=== PATIENT | male | born 1980 | race Two or more races ===

== ENCOUNTER 2025-04-24 14:54 | Emergency (ER) | payer MEDICAID, OTHER ==
[~2025-04-24] VITALS: Ht 170.2 cm; Wt 74.8 kg
--- NOTE | 2025-04-24 16:45 | ED.PDOC ---
Musculoskeletal HPI Comments This is a 44 year old male presenting to the ED with chief complaint of left hand injury. Patient reports that while working on his car today, he had accidentally hit his left hand with a hammer and then accidentally bumped his left elbow into his car. Patient relays that there is now a lot of swelling to his left hand and 10/10 pain. Patient denies any numbness, weakness, tingling, or further injury. Chief Complaint: Upper Extremity Time Seen by MD: 16:44 Primary Care Provider: STEPHANIA Noland Notes: Nurses Notes, Medications, Allergies Allergies: Coded Allergies: No Known Drug Allergy (Verified Allergy, Unknown, 04/24/25) Information Source: Patient Mode of Arrival: Ambulatory Location: Left Extremity Location: Hand Timing: Hours Prehospital treatment: None Severity: Moderate Able to Move Extremity: Yes Bear Weight: Fully Pain: Moderate Mechanism: Blunt Trauma Circumstances: Accident Onset of Symptoms: After Trauma Symptoms: Swelling, Pain DVT Risk Factors: NONE Last Tetanus: UTD Past Medical History PAST MEDICAL HISTORY: Denies Surgical History: Denies all surgeries Family History Family History: Reviewed,noncontributory to illness Social History Smoker: Non-Smoker Alcohol: Denies ETOH Use Drugs: Denies Drug Use Lives In: Home Constitutional: denies: chills, diaphoresis, fatigue, fever, malaise, sweats, weakness, others EENTM: denies: blurred vision, double vision, ear bleeding, ear discharge, ear drainage, ear pain, ear ringing, eye pain, eye redness, hearing loss, mouth pain, mouth swelling, nasal discharge, nose bleeding, nose congestion, nose pain, photophobia, tearing, throat pain, throat swelling, voice changes, others Respiratory: denies: cough, hemoptysis, orthopnea, SOB at rest, shortness of breath, SOB with excertion, stridor, wheezing, others Cardiovascular: denies: chest pain, dizzy spells, diaphoresis, Dyspnea on exertion, edema, irregular heart beat, left arm pain, lightheadedness, palpitations, PND, syncope, others Gastrointestinal: denies: abdomen distended, abdominal pain, blood streaked bowels, constipated, diarrhea, dysphagia, difficulty swallowing, hematemesis, melena, nausea, poor appetite, poor fluid intake, rectal bleeding, rectal pain, vomiting, others Genitourinary: denies: burning, dysuria, flank pain, frequency, hematuria, incontinence, penile discharge, penile sore, pain, testicle pain, testicle swelling, urgency, others Neurological: denies: dizziness, fainting, headache, left sided numbness, left sided weakness, numbness, paresthesia, pre-existing deficit, right sided numbness, right sided weakness, seizure, speech problems, tingling, tremors, weakness, others Musculoskeletal: reports: others (Left hand swelling and pain, left elbow pain); denies: back pain, gout, joint pain, joint swelling, muscle pain, muscle stiffness, neck pain Integumetry: denies: bruises, change in color, change in hair/nails, dryness, laceration, lesions, lumps, rash, wounds, others Allergic/Immunocompromised: denies: Difficulty Healing, Frequent Infections, Hives, Itching, others Hematologic/Lymphatic: denies: anemia, blood clots, easy bleeding, easy bruising, swollen glands, others Endocrine: denies: excessive hunger, excessive sweating, excessive thirst, excessive urination, flushing, intolerance to cold, intolerance to heat, unexplained weight gain, unexplained weight loss, others Psychiatric: denies: anxiety, bipolar disorder, depression, hopeless, panic disorder, schizophrenia, sleepless, suicidal, others All Other Systems: Reviewed and Negative Physical Exam General Appearance: Mild Distress HEENT: Normal ENT Inspection, Pharynx Normal, TMs Normal Neck: Full Range of Motion, Non-Tender, Normal, Normal Inspection Respiratory: Chest Non-Tender, Lungs Clear, No Accessory Muscle Use, No Respiratory Distress, Normal Breath Sounds Cardiovascular: No Edema, No JVD, No Murmur, No Gallop, Normal Peripheral Pulses, Regular Rate/Rhythm Breast Exam: Deferred Gastrointestinal: No Organomegaly, Non Tender, No Pulsatile Mass, Normal Bowel Sounds, Soft Genitalia: Deferred Pelvic: Deferred Rectal: Deferred Extremities: Decreased range of motion, Inflammation, Normal capillary refill, Swelling, Tender Musculoskeletal : Location: Left Extremity Location: Elbow, Hand Apperance: Swelling, Deformity, Limited ROM, Tenderness: Moderate Neurologic: Alert, working manager II-XII nml as Tested, No Motor Deficits, Normal Affect, Normal Mood, No Sensory Deficits Cerebellar Function: Normal Reflexes: Normal Skin: Dry, Normal Color, Warm Peripheral Pulses: 1+ carotid (R), 1+ carotid (L) Lymphatic: No Adenopathy Was a procedure done? Was a procedure done?: No Differential Diagnosis EXT Differential Diagnosis: Fracture, Sprain, Dislocation, Contusion, Strain X-Ray, Labs, Meds, VS Vital Signs Date Time Temp Pulse Resp B/P (MAP) Pulse Ox O2 Delivery O2 Flow Rate FiO2 04/24/25 15:27 98.2 70 18 173/81 (111) 96 98.2 Time of 1ST Reevaluation: 17:43 Reevaluation 1ST: Unchanged Patient Education/Counseling: Diagnosis, Treatment Family Education/Counseling: No Family Present Departure 1 Departure Time of Disposition: 18:49 Impression: Primary Impression: Contusion of left elbow Qualified Codes: S50.02XA - Contusion of left elbow, initial encounter Additional Impressions: Soft tissue injury of left hand Qualified Codes: S69.92XA - Unspecified injury of left wrist, hand and finger(s), initial encounter Puncture wound of left hand Qualified Codes: S61.432A - Puncture wound without foreign body of left hand, initial encounter Disposition: 01 HOME / SELF CARE / HOMELESS Condition: Fair Additional Instructions: Keep the puncture wound clean and dry Hot soaks to the hand and the elbow Follow up with your PCP e-Prescriptions Hydrocodone-Acetaminophen (Hydrocodone Bitartrate/AC 5-325 mg) 1 Tab Tab 1 TAB PO BID for 5 Days, #10 TAB Prov: MIAN FARR MD 04/24/25 Cefdinir (Cefdinir) 300 Mg Cap 1 CAP PO BID for 7 Days, #14 CAP Prov: MIAN FARR MD 04/24/25 Naproxen (Naproxen) 375 Mg Tab 500 MG PO BID for 10 Days, #20 TAB Prov: MIAN FARR MD 04/24/25 Discharged With: Self Critical Care Note Critical Care Time?: No Stability Stability form required: No Heart Score Heart Score: Heart Score Response (Comments) Value History N/A 0 EKG N/A 0 Age <45 0 Risk Factors No known risk factors 0 Troponin N/A 0 Total 0 I personally scribed for SEVERO JOHNSON MD ([email or web address]) on 04/24/25 at 16:45. Electronically submitted by Dusty Galdamez ([email or web address]). SEVERO JOHNSON MD Apr 24, 2025 16:45 MIAN FARR MD Apr 24, 2025 17:38
--- NOTE | 2025-04-24 17:49 | DVH ---
CLINICAL INDICATION: trauma TECHNIQUE: 3 radiographic views of the left elbow were obtained. Comparison: None FINDINGS/IMPRESSION: 8 mm Olecranon bony spur is noted with fracture of the bony spur of unknown chronicity. Recommend co rrelation with point tenderness. Otherwise, no evidence of acute traumatic fractures or dislocations. The visualized joint space is well maintained. The alignment is anatomical. There is no radiopaque foreign body.
--- NOTE | 2025-04-24 17:50 | DVH ---
CLINICAL INDICATION: trauma TECHNIQUE: 3 radiographic views of the left hand were obtained. Comparison: None FINDINGS/IMPRESSION: There is no evidence of acute fracture or dislocation. The visualized joint space is well maintained. The alignment is anatomical. There is no radiopaque foreign body.
[2025-04-24] MEDS ORDERED: HYDR-4902 PO (18:53)
[2025-04-24] MEDS ORDERED: NAPR-957 PO (18:53)
[2025-04-24] MEDS ORDERED: CEFD300C2 PO (18:53)
[2025-04-24] MEDS: HYDROcodone-ACET 5/325MG TAB PO ONE (19:05)
[2025-04-24 19:07] VITALS: BP 163/91; PULSE 79; RESP 18; TEMP 98.4; O2SAT 97
== END 2025-04-24 19:15 | disposition home or self-care (01) ==
LOC: ER 14:54
DX: S50.02XA Contusion of left elbow, initial encounter (principal); S61.432A Puncture wound without foreign body of left hand, initial encounter; S69.82XA Other specified injuries of left wrist, hand and finger(s), initial encounter; W22.8XXA Striking against or struck by other objects, initial encounter; Y93.89 Activity, other specified; Y92.89 Other specified places as the place of occurrence of the external cause; Y99.8 Other external cause status
CPT/HCPCS: 73080; 73130

== ENCOUNTER 2025-04-26 09:06 | Outpatient (CLI) | payer MEDICAID ==
[~2025-04-26] VITALS: Ht 167.6 cm; Wt 74.8 kg
[~2025-04-26 09:06] MED LIST: CEFD300C2 PO; HYDR-4902 PO; NAPR-957 PO
[2025-04-26] MEDS: REGADENOSON 0.4 MG/5 ML SYRG IV ONE ×2 (09:36→10:47)
--- NOTE | 2025-05-06 08:43 | DVHSR ---
APPROVED REPORT Exam: Nuclear Stress Test BMI: 0 Stress Test Details Stress Test: Pharmacologic stress testing performed using 0.4 mg of regadenoson per 5 mL given IV ov er 10 seconds. HR Resting HR: 63 bpmMax Heart Rate (APMHR): 176.467867 bpm Max HR Achieved: 114 bpmTarget HR (85% APMHR): 149.088339 bpm % of APMHR: 64.77 Recovery HR: 72 bpm BP Resting BP: 136/95 mmHg Recovery BP: 135/92 mmHg ECG Resting ECG: Sinus Rhythm Clinical Reason for Termination: Completed protocol Nurse Comments Recieved pt. from [facility]. A/Ox4 on RA. Connected to youth nutritional monitor, VS stable. PIV flushes well. Re viewed POC. Pt. verbalized understanding of procedure including risks and side effects, agrees for st ress testing. Lexiscan stress test performed per protocol. [facility] tech administered Cardiolite. Pt. tolerated well . Pt. stable, no change on exam. VS returned to baseline. Transferred to [facility] via wheelchair w/ te ch. Stress ECG Conclusion lvef 57% decreased counts on stress imaging, quality is suboptimal no major ischemia is noted inferior wall artifact suspected NM EXAM: Myocardial Perfusion REST/STRESS Imaging Protocol: Rest Tc-99m/Stress Tc-99m 1 day Resting Data Rest SPECT myocardial perfusion imaging was performed in supine position 60 minutes following the int ravenous injection of 11.5 mCi of Tc-99m Sestamibi. Time of rest injection: 0930 Time of rest imagin Administration Route: IV Administration Site: Right Hand Pharmacologic Stress Pharmacologic stress test was performed by injecting Regadenoson 0.4 mg IV push followed by the intra venous injection of 31.8 mCi of Tc-99m Sestamibi. Time of stress injection: 1045 Time of stress imagin Administration Route: IV Administration Site: Right Hand Gated Stress SPECT was performed 70 minutes after stress injection. The images were gated to evaluate regional wall motion and calculate left ventricular ejection fracti on. Nuclear Conclusion lvef 57% decreased counts on stress imaging, quality is suboptimal no major ischemia is noted inferior wall artifact suspected
== END 2025-04-26 17:00 | disposition home or self-care (01) ==
LOC: XYW 09:06 → EDUNIT# 09:30 → XYW 17:00
PROVIDERS: ATTEND Specialist
DX: R07.9 Chest pain, unspecified (principal); R42 Dizziness and giddiness
CPT/HCPCS: 78452; 93017; A9500; J2785